=== PATIENT | female | born 2000 | race Caucasian/White ===

== ENCOUNTER 2024-04-20 08:03 | Day surgery (SDC) | payer OTHER ==
[2024-04-17 12:05] VITALS: BMI 26.3
[2024-04-20 08:34] VITALS: RESP 16
[2024-04-20] MEDS ORDERED: DEXAMETHASONE SOD PHOSPHATE 10 MG/1 ML VIAL ONE (10:04)
[2024-04-20] MEDS ORDERED: MIDAZOLAM HCL 2 MG/2 ML SINGLE DOSE VIAL ONE (10:04)
[2024-04-20] MEDS ORDERED: BUPIVACAINE HCL/PF 0.5% (5 MG/ML) 30 ML VIAL IJ ONE (10:04)
[2024-04-20] MEDS ORDERED: ceFAZolin SODIUM 1 GM VIAL ONE (10:33)
[2024-04-20] MEDS ORDERED: PROPOFOL 20 ML ONE ×3 (10:33→11:15)
[2024-04-20] MEDS ORDERED: DEXAMETHASONE SOD PHOSPHATE 4 MG/1 ML VIAL ONE (10:44)
[2024-04-20] MEDS ORDERED: ONDANSETRON 4 MG/2 ML VIAL ONE (10:44)
[2024-04-20] MEDS ORDERED: oxyCODONE HCL 5 MG TABLET ONE (11:44)
[2024-04-20] MEDS: oxyCODONE HCL 5 MG TABLET PO ONE (11:45)
[2024-04-20] MEDS ORDERED: oxyCODONE HCL 5 MG TABLET PO PRN (11:54)
[2024-04-20] MEDS ORDERED: ONDANSETRON 4 MG/2 ML VIAL IVPUSH PRN (11:54)
[2024-04-20 11:57] VITALS: TEMP 96.9
[2024-04-20] MEDS ORDERED: LACTATED RINGERS SOLUTION 1,000 ML IV SCH (12:00)
[2024-04-20 12:24] VITALS: BP 116/71; PULSE 74
== END 2024-04-20 13:15 | disposition home or self-care (01) ==
LOC: FASU 08:03
PROVIDERS: ATTEND Orthopaedic Surgery
PROC: 0PSL04Z Reposition Left Ulna with Internal Fixation Device, Open Approach (ICD-10-PCS; principal; 2024-04-20 10:48)
DX: S52.292A Other fracture of shaft of left ulna, initial encounter for closed fracture (principal); W18.30XA Fall on same level, unspecified, initial encounter; Y93.9 Activity, unspecified; Y92.9 Unspecified place or not applicable; Y99.8 Other external cause status
CPT/HCPCS: 25545; C1713; 73110-TC-LT-FY; 73130-TC-LT-FY; 81025; C1758; J1100